=== PATIENT | female | born 1980 | race Caucasian/White ===

== ENCOUNTER 2017-06-11 18:11 | Emergency (ER) | payer OTHER ==
[~2017-06-11] VITALS: Ht 162.6 cm; Wt 59.0 kg
[2017-06-11 18:50] VITALS: Ht 162.6 cm; Wt 59.0 kg
[2017-06-11 22:14] LABS: BASOPHIL % 0.7 % (0-2); PLATELET COUNT 226 x10^3mcL (130-400)
[2017-06-11 22:22] LABS: CARBON DIOXIDE 29.8 mmol/L (21-32); CREATININE SERUM 0.7 mg/dL (0.6-1.0); GFR1 > 60 mL/min; GLUCOSE SERUM 89 mg/dL (74-106); POTASSIUM SERUM 3.8 mmol/L (3.5-5.1)
[2017-06-11 22:28] LABS: ALKALINE PHOSPHATASE 87 U/L (46-116); ALT/SGPT 41 U/L (14-59); AST/SGOT 24 U/L (15-37); BILIRUBIN TOTAL 0.3 mg/dL (0.20-1.00); CHLORIDE SERUM 100 mmol/L (98-107); SODIUM SERUM 137 mmol/L (136-145); TOTAL PROTEIN, SERUM 8.1 g/dL (6.4-8.2)
[2017-06-11 23:50] LABS: microscopic required? YES; urine erythrocyte 2+ (NEGATIVE)
[2017-06-12 02:08] VITALS: BP 112/61
== END 2017-06-12 02:08 | disposition home or self-care (01) ==
LOC: ED 18:11
PROVIDERS: Emergency Medicine
DX: N73.9 Female pelvic inflammatory disease, unspecified (principal); N76.0 Acute vaginitis; B96.89 Other specified bacterial agents as the cause of diseases classified elsewhere; A59.9 Trichomoniasis, unspecified; J45.909 Unspecified asthma, uncomplicated; F17.210 Nicotine dependence, cigarettes, uncomplicated; Z88.0 Allergy status to penicillin; Z88.5 Allergy status to narcotic agent
CPT/HCPCS: 87491; 87591; J0696; J1885

== ENCOUNTER 2020-02-18 09:27 | Emergency (ER) | payer OTHER ==
[~2020-02-18] VITALS: Ht 170.2 cm; Wt 62.1 kg
[2020-02-18 09:29] VITALS: Ht 170.2 cm; Wt 62.1 kg
[2020-02-18 11:39] VITALS: BP 116/76
== END 2020-02-18 11:39 | disposition left against medical advice (07) ==
LOC: ED 09:27
DX: T76.21XA Adult sexual abuse, suspected, initial encounter (principal); K08.89 Other specified disorders of teeth and supporting structures; R10.2 Pelvic and perineal pain; J45.909 Unspecified asthma, uncomplicated; Z88.5 Allergy status to narcotic agent; Z88.0 Allergy status to penicillin
CPT/HCPCS: 87491; 87591

== ENCOUNTER 2020-02-18 12:38 | Emergency (ER) | payer OTHER ==
[~2020-02-18] VITALS: Ht 170.2 cm; Wt 62.1 kg
[2020-02-18 13:20] VITALS: Ht 170.2 cm; Wt 62.1 kg
[2020-02-18 17:42] VITALS: BP 119/88
== END 2020-02-18 17:30 | disposition home or self-care (01) ==
LOC: ED 12:38
DX: K08.89 Other specified disorders of teeth and supporting structures (principal); N76.0 Acute vaginitis; J45.909 Unspecified asthma, uncomplicated; Z88.0 Allergy status to penicillin; Z88.5 Allergy status to narcotic agent
CPT/HCPCS: 87491; 87591